=== PATIENT | female | born 1960 | race African-American/Black ===

== ENCOUNTER 2024-06-05 20:19 | Emergency (ER) | payer OTHER ==
[~2024-06-05] VITALS: Ht 167.6 cm; Wt 64.0 kg
[2024-06-05 21:00] VITALS: TEMP 98.3; O2SAT 99
[2024-06-06 00:45] LABS: CLARITY URINE CLEAR (CLEAR); COLOR URINE YELLOW (YELLOW); GLUCOSE URINE NEGATIVE (NEGATIVE); KETONES URINE NEGATIVE (NEGATIVE); LEUKOCYTE ESTERASE URINE TRACE (NEGATIVE); NITRITE URINE NEGATIVE (NEGATIVE); OCCULT BLOOD URINE NEGATIVE (NEGATIVE); PROTEIN URINE NEGATIVE (NEGATIVE); SPECIFIC GRAVITY URINE 1.019 (1.005-1.030); UROBILINOGEN URINE 0.2 E.U./dL (0.2-1.0)
[2024-06-06 00:45] LABS: CHLORIDE 110 mEq/L (98-107); POTASSIUM 3.6 mEq/L (3.5-5.1); SODIUM 145 mEq/L (136-145)
[2024-06-06 00:46] LABS: CALCIUM 9.3 mg/dL (8.7-10.4); CARBON DIOXIDE 29 mEq/L (21-32)
[2024-06-06 00:51] LABS: GLUCOSE 90 mg/dL (70-105); UREA NITROGEN BLOOD 10 mg/dL (9-23)
[2024-06-06 00:53] LABS: ALANINE AMINOTRANSFERASE 14 IU/L (10-49); ALBUMIN 4.3 g/dL (3.2-4.8); ASPARTATE AMINOTRANSFERASE 21 IU/L (<34); BILIRUBIN DIRECT 0.2 mg/dL (<=3.0); BILIRUBIN TOTAL 0.8 mg/dL (0.1-1.0); FOLIC ACID (FOLATE) SERUM > 20.00 ng/mL (>5.38); PROTEIN TOTAL 7.1 g/dL (6.0-8.3); TROPONIN I HIGH SENSITIVITY 4 ng/L (3.0-34); VITAMIN B12 SERUM 1116 pg/mL (211-911)
[2024-06-06 00:57] LABS: *AMPHETAMINES SCREEN URINE NEGATIVE (NEGATIVE); *BARBITURATES SCREEN URINE NEGATIVE (NEGATIVE); *BENZODIAZEPINES SCREEN URINE NEGATIVE (NEGATIVE); *COCAINE SCREEN URINE NEGATIVE (NEGATIVE); CANNABINOID URINE SCREEN NEGATIVE (NEGATIVE); METHADONE URINE SCREEN NEGATIVE (NEGATIVE); OPIATES URINE SCREEN NEGATIVE (NEGATIVE); PHENCYCLIDINE URINE SCREEN NEGATIVE (NEGATIVE)
[2024-06-06 00:57] LABS: HEMATOCRIT. 36.9 % (36.0-48.0); HEMOGLOBIN. 12.1 g/dL (12.0-16.0); LYMPHOCYTES % 42.2 % (20.0-50.0); MEAN CORPUSCULAR HEMOGLOBIN 30.5 pg (28.0-32.0); MEAN CORPUSCULAR HGB CONC 32.9 g/dL (31.0-37.0); MEAN CORPUSCULAR VOLUME 92.8 fL (81.0-99.0); MEAN PLATELET VOLUME 10.1 fl (7.4-10.4); MONOCYTES % 8.8 % (2.0-8.0); PLATELET 190 x1000/uL (130-400); RED BLOOD CELL COUNT 3.98 mill/uL (4.2-5.4); RED CELL DISTRIBUTION WIDTH 14.9 % (11.6-14.6); T4 FREE 1.06 ng/dL (0.89-1.76); THYROID STIMULATING HORMONE 0.67 uIU/mL (0.55-4.78); WHITE BLOOD COUNT 3.8 x1000/uL (4.5-11.0)
[2024-06-06 00:58] LABS: ECSTASY MDMA SCREEN URINE NEGATIVE (NEGATIVE)
[2024-06-06 01:23] LABS: ETHANOL BLOOD < 10 mg/dL (<10)
[2024-06-06 03:31] LABS: ERYTHROCYTE SEDIMENTATION RATE 5 mm/hr (0-30)
[2024-06-06 04:02] LABS: RBC URINE 0-2 /hpf (0-2)
[2024-06-06 04:03] LABS: SQUAMOUS EPITHELIAL CELL URINE FEW /lpf (RARE/1+)
[2024-06-06 04:04] LABS: BACTERIA URINE NONE SEEN
[2024-06-06 04:11] VITALS: BP 136/76; PULSE 64; RESP 11; O2SAT 100
== END 2024-06-06 04:28 | disposition admitted as inpatient to this hospital (09) ==
LOC: ER 20:19
DX: R41.82 Altered mental status, unspecified (principal); D72.819 Decreased white blood cell count, unspecified; I10 Essential (primary) hypertension
CPT/HCPCS: 36415; 80048; 80076; 80305; 80320; 81003; 82607; 82746; 84425; 84439; 84443; 84484; 85025; 85651; 86038; 86592; 93005; 99284; 99285; G0480